=== PATIENT | female | born 1965 | race Caucasian/White ===

== ENCOUNTER 2022-01-25 07:57 | Outpatient (CLI) | payer MEDICARE, BC ==
[2022-01-25] MEDS ORDERED: Iopamidol 300 61% 100 ML VIAL FS ONE (08:00)
== END 2022-01-25 07:58 | disposition home or self-care (01) ==
LOC: CSHCT 07:57
PROVIDERS: ATTEND Internal Medicine Gastroenterology
DX: R16.0 Hepatomegaly, not elsewhere classified (principal); R93.2 Abnormal findings on diagnostic imaging of liver and biliary tract; K76.0 Fatty (change of) liver, not elsewhere classified; I70.0 Atherosclerosis of aorta; N85.2 Hypertrophy of uterus; N85.8 Other specified noninflammatory disorders of uterus; M51.36 Other intervertebral disc degeneration, lumbar region; M47.816 Spondylosis without myelopathy or radiculopathy, lumbar region
CPT/HCPCS: 74170; Q9967